=== PATIENT | male | born 1960 | race Caucasian/White ===

== ENCOUNTER 2019-07-02 07:54 | Day surgery (SDC) | payer BC ==
[~2019-07-02] VITALS: Ht 182.9 cm; Wt 116.1 kg
[~2019-07-02 07:54] MED LIST: ENAL5 PO; LEVO-T150 MCG PO; LEVSOD125 PO; Lipitor20 MG PO; NIAC500 PO; Pravachol40 MG PO; Prednisone20 MG PO; Synthroid137 MCG PO
--- NOTE | 2019-07-02 08:48 | NUR ---
07/02/19 0848 Wen Mathis 1 IV MISS IN RW BY KIAN VALVE 1 GOOD IV IN RAC BY KIAN PT TOW
== END 2019-07-02 10:33 | disposition home or self-care (01) ==
LOC: ORSCSDS 07:54
PROVIDERS: Internal Medicine Gastroenterology
PROC: 0DBL8ZX Excision of Transverse Colon, Via Natural or Artificial Opening Endoscopic, Diagnostic (ICD-10-PCS; principal; 2019-07-02 09:15)
PROC: 0DBN8ZX Excision of Sigmoid Colon, Via Natural or Artificial Opening Endoscopic, Diagnostic (ICD-10-PCS; principal; 2019-07-02 09:15)
PROC: 0DBM8ZX Excision of Descending Colon, Via Natural or Artificial Opening Endoscopic, Diagnostic (ICD-10-PCS; principal; 2019-07-02 09:15)
DX: R19.5 Other fecal abnormalities (principal); D12.3 Benign neoplasm of transverse colon; K63.5 Polyp of colon; K57.30 Diverticulosis of large intestine without perforation or abscess without bleeding; K64.8 Other hemorrhoids; I10 Essential (primary) hypertension; E78.5 Hyperlipidemia, unspecified; N18.3 Chronic kidney disease, stage 3 (moderate); Z79.899 Other long term (current) drug therapy; Z87.891 Personal history of nicotine dependence
CPT/HCPCS: 88305; J2704; J7120

== ENCOUNTER 2019-08-19 08:14 | Day surgery (SDC) | payer BC ==
[~2019-08-19] VITALS: Ht 182.9 cm; Wt 121.7 kg
== END 2019-08-19 10:42 | disposition home or self-care (01) ==
LOC: ORSCSDS 08:14
PROVIDERS: Internal Medicine Gastroenterology
PROC: 0DB98ZX Excision of Duodenum, Via Natural or Artificial Opening Endoscopic, Diagnostic (ICD-10-PCS; principal; 2019-08-19 09:30)
PROC: 0DB48ZX Excision of Esophagogastric Junction, Via Natural or Artificial Opening Endoscopic, Diagnostic (ICD-10-PCS; principal; 2019-08-19 09:30)
PROC: 0DB68ZX Excision of Stomach, Via Natural or Artificial Opening Endoscopic, Diagnostic (ICD-10-PCS; principal; 2019-08-19 09:30)
DX: R19.5 Other fecal abnormalities (principal); K22.70 Barrett's esophagus without dysplasia; K29.80 Duodenitis without bleeding; K31.7 Polyp of stomach and duodenum; E07.9 Disorder of thyroid, unspecified; I12.9 Hypertensive chronic kidney disease with stage 1 through stage 4 chronic kidney disease, or unspecified chronic kidney disease; N18.3 Chronic kidney disease, stage 3 (moderate); E78.5 Hyperlipidemia, unspecified; Z79.899 Other long term (current) drug therapy; Z87.891 Personal history of nicotine dependence
CPT/HCPCS: 88305; 88342; J2704; J7120

== ENCOUNTER 2023-03-19 11:44 | Day surgery (SDC) | payer BC ==
[~2023-03-19] VITALS: Ht 182.9 cm; Wt 113.4 kg
[~2023-03-19 11:44] MED LIST changes: +DICY20 PO; +OXYC5 PO; +PROM25 PO
[2023-03-19] MEDS ORDERED: OMEP20ER (12:50)
[2023-03-19 14:52] VITALS: BP 116/75
== END 2023-03-19 15:06 | disposition home or self-care (01) ==
LOC: ORSCSDS 11:44
PROVIDERS: Internal Medicine Gastroenterology
PROC: 0DBH8ZX Excision of Cecum, Via Natural or Artificial Opening Endoscopic, Diagnostic (ICD-10-PCS; principal; 2023-03-19 13:00)
PROC: 0DBL8ZX Excision of Transverse Colon, Via Natural or Artificial Opening Endoscopic, Diagnostic (ICD-10-PCS; principal; 2023-03-19 13:00)
PROC: 0DB78ZX Excision of Stomach, Pylorus, Via Natural or Artificial Opening Endoscopic, Diagnostic (ICD-10-PCS; principal; 2023-03-19 13:00)
PROC: 0DB98ZX Excision of Duodenum, Via Natural or Artificial Opening Endoscopic, Diagnostic (ICD-10-PCS; principal; 2023-03-19 13:00)
PROC: 0DB58ZX Excision of Esophagus, Via Natural or Artificial Opening Endoscopic, Diagnostic (ICD-10-PCS; principal; 2023-03-19 13:00)
DX: R19.7 Diarrhea, unspecified (principal); R10.84 Generalized abdominal pain; K22.70 Barrett's esophagus without dysplasia; K29.80 Duodenitis without bleeding; K31.7 Polyp of stomach and duodenum; D12.0 Benign neoplasm of cecum; D12.3 Benign neoplasm of transverse colon; K57.30 Diverticulosis of large intestine without perforation or abscess without bleeding; K29.70 Gastritis, unspecified, without bleeding; K64.1 Second degree hemorrhoids; R11.2 Nausea with vomiting, unspecified; Z87.891 Personal history of nicotine dependence; E03.9 Hypothyroidism, unspecified; E78.5 Hyperlipidemia, unspecified; I12.9 Hypertensive chronic kidney disease with stage 1 through stage 4 chronic kidney disease, or unspecified chronic kidney disease; N18.9 Chronic kidney disease, unspecified; Z79.899 Other long term (current) drug therapy; E66.9 Obesity, unspecified; Z68.34 Body mass index [BMI] 34.0-34.9, adult
CPT/HCPCS: 88305; 88342; J0461; J2001; J2405; J2704; J7120; Q9968

== ENCOUNTER 2023-08-05 06:26 | Day surgery (SDC) | payer BC ==
[~2023-08-05] VITALS: Ht 182.9 cm; Wt 115.3 kg
[2023-08-05] VITALS (11 sets, daily range): BP systolic 124–142; BP diastolic 71–98
[~2023-08-05 06:26] MED LIST changes: +LOSA25 PO; +OMEP20ER PO
--- NOTE | 2023-08-05 07:20 | NUR ---
Ambulatory in Day Surgery History, Chart, Medications and Allergies reviewed before start of procedure. Pre-Op teaching done. Pt verbalizes understanding. Patient States Post-Procedure ride home has been arranged with [facility].
--- NOTE | 2023-08-05 10:29 | NUR ---
Discharge instructions reviewed with patient. Patient verbalizes understanding. Copy given to patient to take home. Discharged via wheelchair to private car for ride home WITH SPOUSE. Patient up to Ambulate independently. Gait steady.
== END 2023-08-05 22:36 | disposition home or self-care (01) ==
LOC: ORSCMMR 06:26 → ORD 07:30 → ORSCMMR 07:30
PROVIDERS: Surgery
PROC: 0FT44ZZ Resection of Gallbladder, Percutaneous Endoscopic Approach (ICD-10-PCS; principal; 2023-08-05 07:30)
DX: K80.10 Calculus of gallbladder with chronic cholecystitis without obstruction (principal); K66.0 Peritoneal adhesions (postprocedural) (postinfection); E03.9 Hypothyroidism, unspecified; K22.70 Barrett's esophagus without dysplasia; Z79.899 Other long term (current) drug therapy; Z68.34 Body mass index [BMI] 34.0-34.9, adult
CPT/HCPCS: 88304; A9270; J0694; J1100; J1885; J2250; J2405; J2704; J3010; J7120

== ENCOUNTER → 2024-06-09 | Outpatient (CLI) | payer BC ==
[2024-06-09 11:24] LABS: BASOPHILS ABSOLUTE AUTO 0.03 K/mm3 (0.00-0.23); BASOPHILS PERCENT AUTO 1 % (0-2); EOSINOPHILS ABSOLUTE AUTO 0.11 K/mm3 (0.00-0.68); EOSINOPHILS PERCENT AUTO 2 % (0-6); Hematocrit 49.8 % (37.0-53.0); Hemoglobin 17.3 g/dL (13.5-17.5); IMMATURE GRAN ABSOLUTE AUTO 0.03 K/mm3 (0.00-0.10); IMMATURE GRAN PERCENT AUTO 1 % (0-1); LYMPHOCYTES ABSOLUTE AUTO 1.63 K/mm3 (0.84-5.20); LYMPHOCYTES PERCENT AUTO 25 % (21-46); MONOCYTES ABSOLUTE AUTO 0.42 K/mm3 (0.16-1.47); MONOCYTES PERCENT AUTO 7 % (4-13); Mean Corpuscular HGB 32.2 pg (26.0-34.0); Mean Corpuscular HGB Conc 34.7 g/dL (31.5-36.5); Mean Corpuscular Volume 93 fL (80-100); Mean Platelet Volume 9.6 fL (9.1-12.4); NEUTROPHILS PERCENT AUTO 65 % (41-73); Platelet Count 159 K/mm3 (150-400); RDW Coefficient Variation 12.8 % (11.7-14.2); RDW Standard Deviation 43.1 fL (35.1-46.3); Red Blood Cell Count 5.37 M/mm3 (4.30-5.90); White Blood Cell Count 6.42 K/mm3 (4.00-11.30)
== END | disposition home or self-care (01) ==
LOC: LAB 11:11 → LAB SHORT 11:11
PROVIDERS: Physician Assistant
DX: R10.9 Unspecified abdominal pain (principal); G89.29 Other chronic pain
CPT/HCPCS: 85025

== ENCOUNTER → 2024-06-09 | Outpatient (CLI) | payer BC ==
[2024-06-09 11:50] LABS: Albumin, Blood 4.5 g/dL (3.4-5.0); Albumin/Globulin Ratio 1.3 (0.8-1.8); Bilirubin, Total 0.9 mg/dL (0.1-1.0); Bun/Creatinine Ratio 15.1 (12.0-20.0); Calcium, Blood 9.4 mg/dL (8.5-10.1); Creatinine, Blood 1.46 mg/dL (0.60-1.20); Globulin, Blood 3.4 g/dL (2.2-4.0); Potassium, Blood 3.9 mmol/L (3.5-5.5); Total Protein, Blood 7.9 g/dL (6.4-8.2)
== END | disposition home or self-care (01) ==
LOC: LAB SHORT 11:25 → LAB 11:25
PROVIDERS: Physician Assistant
DX: R10.9 Unspecified abdominal pain (principal); G89.29 Other chronic pain
CPT/HCPCS: 80053